=== PATIENT | male | born 1960 | race African-American/Black ===

== ENCOUNTER 2020-12-24 17:45 | Emergency (ER) | payer OTHER, MEDICAID ==
[~2020-12-24] VITALS: Ht 177.8 cm; Wt 75.0 kg
[2020-12-24 19:05] LABS: EOSINOPHILS % 3.5 % (0.0-5.0); HEMATOCRIT. 37.7 % (42.0-52.0); HEMOGLOBIN. 12.4 g/dL (14.0-18.0); LYMPHOCYTES % 44.4 % (20.0-50.0); MEAN CORPUSCULAR HEMOGLOBIN 25.6 pg (28.0-32.0); MEAN CORPUSCULAR VOLUME 77.7 fL (80.0-94.0); MEAN PLATELET VOLUME 7.6 fl (7.4-10.4); MONOCYTES % 8.1 % (2.0-8.0); PLATELET 243 x1000/uL (130-400); RED BLOOD CELL COUNT 4.85 mill/uL (4.7-6.1)
[2020-12-24 19:11] LABS: CHLORIDE 112 mEq/L (98-107)
[2020-12-24] MEDS ORDERED: ASPIRIN 325MG EC TABLET PO ONE (20:15)
[2020-12-24 23:47] VITALS: BP 135/78
== END 2020-12-24 23:48 | disposition home or self-care (01) ==
LOC: ER 17:51
DX: R07.89 Other chest pain (principal); I10 Essential (primary) hypertension
CPT/HCPCS: 36415; 71045; 80053; 83880; 84484; 85025; 93005; 99285

== ENCOUNTER 2021-03-20 20:16 | Emergency (ER) | payer MEDICAID, OTHER ==
[~2021-03-20] VITALS: Ht 177.8 cm; Wt 72.9 kg
[2021-03-20 21:38] VITALS: BP 122/78
[2021-03-20] MEDS ORDERED: IBUP-2030 MT (22:41)
== END 2021-03-20 22:54 | disposition home or self-care (01) ==
LOC: ER 20:16
DX: M79.18 Myalgia, other site (principal); V49.49XA Driver injured in collision with other motor vehicles in traffic accident, initial encounter; Y93.89 Activity, other specified; Y92.89 Other specified places as the place of occurrence of the external cause; Y99.8 Other external cause status; I10 Essential (primary) hypertension
CPT/HCPCS: 99281

== ENCOUNTER 2021-04-07 21:34 | Emergency (ER) | payer MEDICAID, OTHER ==
[~2021-04-07] VITALS: Ht 177.8 cm; Wt 73.0 kg
[~2021-04-07 21:34] MED LIST: IBUP-2030 MT
[2021-04-07 21:36] VITALS: BP 134/83
[2021-04-07] MEDS ORDERED: ASPIRIN 81MG TABLET PO ONE (22:30)
[2021-04-07] MEDS ORDERED: NITROGLYCERIN 0.4MG TABLET SL SL PRN (22:30)
[2021-04-07 22:58] LABS: BASOPHILS % 0.9 % (0.0-2.0); EOSINOPHILS % 2.3 % (0.0-5.0); HEMATOCRIT. 37.9 % (42.0-52.0); HEMOGLOBIN. 12.3 g/dL (14.0-18.0); LYMPHOCYTES % 38.2 % (20.0-50.0); MEAN CORPUSCULAR HEMOGLOBIN 25.7 pg (28.0-32.0); MEAN CORPUSCULAR VOLUME 79.1 fL (80.0-94.0); MEAN PLATELET VOLUME 7.9 fl (7.4-10.4); MONOCYTES % 11.5 % (2.0-8.0); NEUTROPHILS % 47.1 % (40.0-76.0); PLATELET 216 x1000/uL (130-400); RED BLOOD CELL COUNT 4.79 mill/uL (4.7-6.1)
[2021-04-07 23:03] LABS: CHLORIDE 111 mEq/L (98-107)
[2021-04-07 23:08] LABS: CLARITY URINE CLEAR (CLEAR); COLOR URINE YELLOW (YELLOW); KETONES URINE NEGATIVE (NEGATIVE); LEUKOCYTE ESTERASE URINE NEGATIVE (NEGATIVE); NITRITE URINE NEGATIVE (NEGATIVE); OCCULT BLOOD URINE 1+ (NEGATIVE); PH URINE 6.5 (4.5-8.0); PROTEIN URINE NEGATIVE (NEGATIVE); SPECIFIC GRAVITY URINE 1.023 (1.005-1.030)
[2021-04-07 23:22] LABS: *AMPHETAMINES SCREEN URINE NEGATIVE (NEGATIVE); *BARBITURATES SCREEN URINE NEGATIVE (NEGATIVE); *BENZODIAZEPINES SCREEN URINE NEGATIVE (NEGATIVE); *COCAINE SCREEN URINE NEGATIVE (NEGATIVE); METHADONE URINE SCREEN NEGATIVE (NEGATIVE); OPIATES URINE SCREEN PRESUMTIVE POSITIVE (NEGATIVE)
[2021-04-07 23:23] LABS: CANNABINOID URINE SCREEN PRESUMTIVE POSITIVE (NEGATIVE); PHENCYCLIDINE URINE SCREEN NEGATIVE (NEGATIVE)
[2021-04-08] MEDS ORDERED: TOPUD MT (00:10)
== END 2021-04-08 00:24 | disposition home or self-care (01) ==
LOC: ER 21:34
DX: R07.89 Other chest pain (principal); R31.29 Other microscopic hematuria; I10 Essential (primary) hypertension
CPT/HCPCS: 36415; 71045; 80053; 80305; 81003; 83880; 84484; 85025; 93005; 99285

== ENCOUNTER 2022-10-14 21:46 | Emergency (ER) | payer MEDICAID, OTHER ==
[~2022-10-14] VITALS: Ht 177.8 cm; Wt 79.7 kg
[~2022-10-14 21:46] MED LIST changes: +TOPUD MT
[2022-10-14] MEDS ORDERED: CYCL10TA21 MT (22:49)
[2022-10-14] MEDS ORDERED: IBUP-2029 MT (22:49)
[2022-10-14] MEDS ORDERED: LORAZEPAM 0.5MG TABLET PO ONE (23:00)
[2022-10-14] MEDS ORDERED: KETOROLAC 60MG/2ML VIAL IM ONE (23:00)
[2022-10-14 23:55] VITALS: BP 139/97
== END 2022-10-15 04:58 | disposition home or self-care (01) ==
LOC: ER 21:46
DX: S09.90XA Unspecified injury of head, initial encounter (principal); V49.49XA Driver injured in collision with other motor vehicles in traffic accident, initial encounter; Y93.89 Activity, other specified; Y92.89 Other specified places as the place of occurrence of the external cause; Y99.8 Other external cause status
CPT/HCPCS: 70450; 96372; 99285; J1885

== ENCOUNTER 2023-01-25 19:16 | Emergency (ER) | payer MEDICAID ==
[~2023-01-25] VITALS: Ht 177.8 cm; Wt 78.0 kg
[~2023-01-25 19:16] MED LIST changes: +CYCL10TA21 MT; +IBUP-2029 MT
[2023-01-25 19:46] VITALS: BP 161/103; PULSE 62; RESP 16; TEMP 97.9; O2SAT 99
[2023-01-25] MEDS ORDERED: CEPH500T MT (20:17)
[2023-01-25] MEDS ORDERED: SULF1TAB48 MT (20:18)
[2023-01-25] MEDS ORDERED: TOPUD PO (20:18)
== END 2023-01-25 21:13 | disposition home or self-care (01) ==
LOC: ER 19:16
DX: L03.115 Cellulitis of right lower limb (principal); I10 Essential (primary) hypertension
CPT/HCPCS: 99283